=== PATIENT | male | born 1985 | race Caucasian/White ===

== ENCOUNTER → 2020-07-25 13:42 | Outpatient (BNVA) | payer OTHER, SELFPAY | PROVIDERS: Visit Provider Internal Medicine | DX: F11.99 Opioid use, unspecified with unspecified opioid-induced disorder (principal) | CPT/HCPCS: 80305; 99212 ==

== ENCOUNTER → 2020-08-02 14:34 | Outpatient (BNVA) | payer OTHER, SELFPAY | PROVIDERS: Visit Provider Internal Medicine | DX: F11.20 Opioid dependence, uncomplicated (principal); Z51.81 Encounter for therapeutic drug level monitoring; Z79.899 Other long term (current) drug therapy | CPT/HCPCS: 80305; 96372; 99212; Q9992 ==

== ENCOUNTER 2020-09-07 09:41 | Outpatient (REF) | payer OTHER, SELFPAY ==
[2020-09-10 15:46] LABS: Buprenorphine 320 ng/mL; Norbuprenorphine 920 ng/mL
[2020-09-14 08:23] LABS: Fentanyl, Ur NEGATIVE
== END 2020-09-07 09:42 | disposition home or self-care (01) ==
LOC: HO.LAB 09:41
PROVIDERS: Visit Provider Internal Medicine
DX: F11.99 Opioid use, unspecified with unspecified opioid-induced disorder (principal)
CPT/HCPCS: 80305; 80348; 80354; 80364; 80365; 99211

== ENCOUNTER 2022-07-23 10:09 | Emergency (ER) | payer OTHER, SELFPAY ==
--- NOTE | 2022-07-23 | ECG_ITS ---
Test Reason : numbness/ chest pain Blood Pressure : / mmHG Vent. Rate : 090 BPM Atrial Rate : 090 BPM P-R Int : 148 ms QRS Dur : 100 ms QT Int : 360 ms P-R-T Axes : 065 083 046 degrees QTc Int : 440 ms Normal sinus rhythm with sinus arrhythmia Normal ECG No previous ECGs available Referred By: Generic ED Physician Electronically Signed By:Willie Hager
[2022-07-23 10:13] VITALS: BP 146/91; PULSE 89; RESP 18; O2SAT 95; BMI 27.8
[2022-07-23 10:52] LABS: Basophils Absolute Auto 0.1 X10*3/uL (0.0-0.2); Basophils Percent Auto 0.6 % (0-2); Eosinophils Absolute Auto 0.2 X10*3/uL (0.0-0.4); Eosinophils Percent Auto 2.1 % (0-4); Hematocrit 46.2 % (42.0-52.0); Hemoglobin 15.7 g/dl (14.0-18.0); Imm Gran Abs Auto 0.03 X10*3/uL (0.00-0.03); Imm Gran Pct Auto 0.4 % (0.0-0.4); Lymphocytes Absolute Auto 2.5 X10*3/uL (1.2-4.9); Lymphocytes Percent Auto 31.1 % (20-40); MANUAL DIFF FLAG SCAN; Mean Corpuscular Hemoglobin 30.4 pg (27.0-33.0); Mean Corpuscular Volume 89.4 fL (80.0-98.0); Monocytes Absolute Auto 0.8 X10*3/uL (0.1-1.2); Monocytes Percent Auto 9.9 % (2-11); Neutrophils Absolute Auto 4.6 x10*3/uL (2.0-8.3); Neutrophils Percent Auto 55.9 % (45-73); PLT CLUMP 1; Red Blood Count 5.17 X10*6/uL (4.60-5.80); Red Cell Distribution Width 13.6 % (11.0-16.0); SCAN SMEAR FLAG 1
[2022-07-23 11:20] LABS: Platelet Count 180 X10*3/uL (160-400); White Blood Count 8.2 X10*3/uL (4.8-10.8)
[2022-07-23 11:21] LABS: SLIDE REVIEW VERIFIED
== END 2022-07-23 14:45 | disposition left against medical advice (07) ==
LOC: HO.ED 16:30
PROVIDERS: Emergency Provider Emergency Medicine; PCP Internal Medicine
DX: R20.2 Paresthesia of skin (principal)
CPT/HCPCS: 36415; 80053; 85025; 93005; 99281; 99283

== ENCOUNTER 2022-07-25 17:20 | Emergency (ER) | payer OTHER, SELFPAY ==
--- NOTE | ~2022-07-25 | XR_ITS ---
EXAMINATION: XR CHEST CLINICAL INFORMATION: Chest pain COMPARISON: None available. TECHNIQUE: Frontal view of the chest was obtained. FINDINGS: No significant abnormality is noted involving the heart, lungs, mediastinum, bony thorax or soft tissues. XR/XR chest 1V IMPRESSION: Unremarkable chest examination.
--- NOTE | ~2022-07-25 | XR_ITS ---
EXAMINATION: XR SHOULDER, LEFT CLINICAL INFORMATION: Left shoulder and neck pain COMPARISON: None available. TECHNIQUE: AP external rotation, Grashey, scapular Y, and axillary views of the left shoulder. FINDINGS: The bones and soft tissues are normal. No fracture. Glenohumeral and acromioclavicular alignment is anatomic with normal joint space. No abnormal soft tissue calcifications. XR/XR shoulder LT min 2V IMPRESSION: Unremarkable left shoulder.
--- NOTE | 2022-07-25 17:21 | ECG_ITS ---
Test Reason : CP Blood Pressure : / mmHG Vent. Rate : 067 BPM Atrial Rate : 067 BPM P-R Int : 196 ms QRS Dur : 100 ms QT Int : 404 ms P-R-T Axes : 045 076 040 degrees QTc Int : 426 ms Normal sinus rhythm Normal ECG When compared with ECG of 23-JUL-2022 10:17, No significant change was found Referred By: Faiza Hunt Electronically Signed By:Willie Hager
[2022-07-25 17:22] VITALS: BP 128/77; PULSE 69; RESP 18; TEMP 36.4; O2SAT 97; BMI 27.8
--- NOTE | 2022-07-25 17:22 | ED_ITS ---
<Statement entered by Nav Foss DO - 01/31/23 13:44> Not seen by chapincito salguero without completion of visit HPI - Chest Pain General Chief Complaint: Chest Pain <CLEO England - Last Filed: 07/25/22 17:26> Stated Complaint: chest pains <CLEO England - Last Filed: 07/25/22 17:26> Time Seen by Provider: 07/25/22 18:27 <CLEO England - Last Filed: 07/25/22 17:26> Related Data Home Medications: Previous Rx's Medication Instructions Recorded buprenorphine 100 mg/0.5 mL 100 mg (0.5 mL) subcut ONCE #0.5 mL 09/06/20 solution,exten.rel.subcutaneous syringe (Sublocade) buprenorphine 8 mg-naloxone 2 mg 2 film sublingual DAILY 30 days 09/16/20 sublingual film (Suboxone) #60 ea <CLEO England - Last Filed: 07/25/22 17:26> Allergies/Adverse Reactions: Allergies Allergy/AdvReac Type Severity Reaction Status Date / Time Penicillins Allergy Unknown Verified 07/25/22 17:22 <CLEO England - Last Filed: 07/25/22 17:26> [facility] Past Medical History Medical History: Medical History Opioid use disorder <CLEO England - Last Filed: 07/25/22 17:26> Social History Social History: Social History Advance Directives: No Advance Directives Information Provided: No <CLEO England - Last Filed: 07/25/22 17:26> Physical Exam 2 Vital Signs: Vital Signs: Last Vital Signs Temp 98.4 F 07/25/22 20:17 Pulse 75 07/25/22 20:17 Resp 18 07/25/22 20:17 BP 129/77 07/25/22 20:17 Pulse Ox 97 07/25/22 20:17 O2 Del Method Room Air 07/25/22 20:17 BMI result Body Mass Index 27.8 <CLEO England Last Filed: 07/25/22 17:26> Vital Signs: Last Vital Signs Temp 98.4 F 07/25/22 20:17 Pulse 75 07/25/22 20:17 Resp 18 07/25/22 20:17 BP 129/77 07/25/22 20:17 Pulse Ox 97 07/25/22 20:17 O2 Del Method Room Air 07/25/22 20:17 BMI result Body Mass Index 27.8 <Nav Foss DO - Last Filed: 01/31/23 13:45> Course Course Course Narrative: This is an RME: Additional HPI, ROS, PE not included below will be deferred to primary provider. 36-year-old male history of opiate use disorder presents to the emergency department substernal chest pain with radiation into left arm with intermittent numbness of left arm has been going on for a month and Physical exam benign Plan labs, EKG, troponin. Perc negative but patient is requesting to be checked for an embolism. <CLEO England - Last Filed: 07/25/22 17:26> This is an RME: Additional HPI, ROS, PE not included below will be deferred to primary provider. 36-year-old male history of opiate use disorder presents to the emergency department substernal chest pain with radiation into left arm with intermittent numbness of left arm has been going on for a month and Physical exam benign Plan labs, EKG, troponin. Perc negative but patient is requesting to be checked for an embolism. Not seen by Dr. Foss was seen in triage by Faiza <Nav Foss DO - Last Filed: 01/31/23 13:45> Medications Administered Discontinued Medications Generic Name Dose Route Start Last Admin Trade Name Freq PRN Reason Stop Dose Admin Ketorolac Tromethamine 15 mg 07/25/22 18:46 07/25/22 19:17 Ketorolac Tromethamine 30 Mg/Ml Vial IM 07/25/22 18:47 Not Given ONCE ONE <CLEO England - Last Filed: 07/25/22 17:26> Medications Administered Discontinued Medications Generic Name Dose Route Start Last Admin Trade Name Freq PRN Reason Stop Dose Admin Ketorolac Tromethamine 15 mg 07/25/22 18:46 07/25/22 19:17 Ketorolac Tromethamine 30 Mg/Ml Vial IM 07/25/22 18:47 Not Given ONCE ONE <Nav Foss DO - Last Filed: 01/31/23 13:45> Medical Decision Making Lab Data Result Diagrams: 07/25/22 18:36 07/25/22 17:39 <CLEO England - Last Filed: 07/25/22 17:26> Labs: Lab Results 07/25/22 07/25/22 07/25/22 Range/Units 17:39 17:50 18:36 WBC 9.7 (4.8-10.8) X10*3/uL RBC 4.46 L (4.60-5.80) X10*6/uL Hgb 13.3 L (14.0-18.0) g/dl Hct 38.4 L (42.0-52.0) % MCV 86.1 (80.0-98.0) fL MCH 29.8 (27.0-33.0) pg MCHC 34.6 (31.0-36.0) g/dl RDW 13.4 (11.0-16.0) % Plt Count 278 D (160-400) X10*3/uL MPV 10.0 (9.4-12.4) fL Immature Gran % (Auto) 0.2 (0.0-0.4) % Neut % (Auto) 40.0 L (45-73) % Lymph % (Auto) 48.0 H (20-40) % Smyth % (Auto) 8.3 (2-11) % Eos % (Auto) 3.2 (0-4) % Baso % (Auto) 0.3 (0-2) % Lymph # (Auto) 4.7 (1.2-4.9) X10*3/uL Smyth # (Auto) 0.8 (0.1-1.2) X10*3/uL Eos # (Auto) 0.3 (0.0-0.4) X10*3/uL Baso # (Auto) 0.0 (0.0-0.2) X10*3/uL Abs Immat Gran (auto) 0.02 (0.00-0.03) X10*3/uL Absolute Neuts (auto) 3.9 (2.0-8.3) x10*3/uL Absolute Nucleated RBC 0.000 (0.0-0.012) X10*3/uL Nucleated RBC % (auto) 0.0 (0.0-0.2) /100WBC D-Dimer High Sensitivty 166 NG/ML Sodium 137 (135-145) mmol/L Potassium 4.7 (3.3-5.1) mmol/L Chloride 104 (96-108) mmol/L Carbon Dioxide 24 (22-29) mmol/L Anion Gap 14 (12-20) BUN 17 H (9-16) mg/dL Creatinine 0.80 (0.5-1.4) mg/dL Estim Creat Clear Calc 142.8 Estimated GFR > 60 Random Glucose 84 (60-115) mg/dL Calcium 9.3 (8.4-10.2) mg/dL Magnesium 2.1 (1.6-2.6) mg/dL Total Bilirubin 0.5 (0.0-1.0) mg/dL AST 97 H (5-37) U/L ALT 157 H (0-40) U/L Alkaline Phosphatase 70 (39-117) U/L Troponin I High Sens < 2.7 (<3.5-35.0) ng/L Total Protein 8.7 H (6.5-8.0) g/dL Albumin 4.0 (3.5-5.0) g/dL <CLOE England - Last Filed: 07/25/22 17:26> Lab Results 07/25/22 07/25/22 07/25/22 Range/Units 17:39 17:50 18:36 WBC 9.7 (4.8-10.8) X10*3/uL RBC 4.46 L (4.60-5.80) X10*6/uL Hgb 13.3 L (14.0-18.0) g/dl Hct 38.4 L (42.0-52.0) % MCV 86.1 (80.0-98.0) fL MCH 29.8 (27.0-33.0) pg MCHC 34.6 (31.0-36.0) g/dl RDW 13.4 (11.0-16.0) % Plt Count 278 D (160-400) X10*3/uL MPV 10.0 (9.4-12.4) fL Immature Gran % (Auto) 0.2 (0.0-0.4) % Neut % (Auto) 40.0 L (45-73) % Lymph % (Auto) 48.0 H (20-40) % Smyth % (Auto) 8.3 (2-11) % Eos % (Auto) 3.2 (0-4) % Baso % (Auto) 0.3 (0-2) % Lymph # (Auto) 4.7 (1.2-4.9) X10*3/uL Smyth # (Auto) 0.8 (0.1-1.2) X10*3/uL Eos # (Auto) 0.3 (0.0-0.4) X10*3/uL Baso # (Auto) 0.0 (0.0-0.2) X10*3/uL Abs Immat Gran (auto) 0.02 (0.00-0.03) X10*3/uL Absolute Neuts (auto) 3.9 (2.0-8.3) x10*3/uL Absolute Nucleated RBC 0.000 (0.0-0.012) X10*3/uL Nucleated RBC % (auto) 0.0 (0.0-0.2) /100WBC D-Dimer High Sensitivty 166 NG/ML Sodium 137 (135-145) mmol/L Potassium 4.7 (3.3-5.1) mmol/L Chloride 104 (96-108) mmol/L Carbon Dioxide 24 (22-29) mmol/L Anion Gap 14 (12-20) BUN 17 H (9-16) mg/dL Creatinine 0.80 (0.5-1.4) mg/dL Estim Creat Clear Calc 142.8 Estimated GFR > 60 Random Glucose 84 (60-115) mg/dL Calcium 9.3 (8.4-10.2) mg/dL Magnesium 2.1 (1.6-2.6) mg/dL Total Bilirubin 0.5 (0.0-1.0) mg/dL AST 97 H (5-37) U/L ALT 157 H (0-40) U/L Alkaline Phosphatase 70 (39-117) U/L Troponin I High Sens < 2.7 (<3.5-35.0) ng/L Total Protein 8.7 H (6.5-8.0) g/dL Albumin 4.0 (3.5-5.0) g/dL <Nav Foss DO - Last Filed: 01/31/23 13:45> Discharge Plan Discharge Clinical Impression: Opioid use disorder, Chest pain, Acute pain of left shoulder, Paresthesia and pain of left extremity <CLEO England - Last Filed: 07/25/22 17:26> Patient Disposition: Home, Self-Care <CLEO England - Last Filed: 07/25/22 17:26> Instructions: Chest Pain (DC), Paresthesia (ED), Shoulder Pain (ED), Arm Pain (ED), Opioid Use Disorder (ED) <CLEO England - Last Filed: 07/25/22 17:26> Additional Instructions: Please call follow-up with give any other concerns please do not hesitate to come back to emergency department. <CLEO England - Last Filed: 07/25/22 17:26> Prescriptions: No Action Sublocade 100 mg/0.5 mL solution, extended rel syringe 100 mg subcut ONCE Qty: 0.5 5RF buprenorphine-naloxone [Suboxone] 8-2 mg film 2 film sublingual DAILY 30 Days Qty: 60 0RF <CLEO England - Last Filed: 07/25/22 17:26> Referrals: Rivka Corley MD [Physician] - (Please call to follow up for your neck and shoulder pain) <CLEO England - Last Filed: 07/25/22 17:26> Interventions: ED Discharge Assessment Last Done: 07/25/22 20:20 <CLEO England - Last Filed: 07/25/22 17:26> Discharge Date/Time: 07/25/22 20:20 <CLEO England - Last Filed: 07/25/22 17:26>
[2022-07-25 18:05] LABS: D Dimer High Sensitivity 166 NG/ML
[2022-07-25 18:25] LABS: Alanine Aminotransferase 157 U/L (0-40); Alkaline Phosphatase 70 U/L (39-117); Anion Gap 14 (12-20); Aspartate Amino Transferase 97 U/L (5-37); Bilirubin Total 0.5 mg/dL (0.0-1.0); Blood Urea Nitrogen 17 mg/dL (9-16); Calcium 9.3 mg/dL (8.4-10.2); Carbon Dioxide 24 mmol/L (22-29); Chloride 104 mmol/L (96-108); Creatinine Clr Calc Pharmacy 142.8; Estimated Glomerular Filt Rate > 60; Glucose Random 84 mg/dL (60-115); Magnesium 2.1 mg/dL (1.6-2.6); Potassium 4.7 mmol/L (3.3-5.1); Sodium 137 mmol/L (135-145); Total Protein 8.7 g/dL (6.5-8.0); Troponin-I High Sensitivity < 2.7 ng/L (<3.5-35.0)
[2022-07-25 18:41] LABS: Basophils Percent Auto 0.3 % (0-2); Eosinophils Absolute Auto 0.3 X10*3/uL (0.0-0.4); Eosinophils Percent Auto 3.2 % (0-4); Hematocrit 38.4 % (42.0-52.0); Hemoglobin 13.3 g/dl (14.0-18.0); Imm Gran Abs Auto 0.02 X10*3/uL (0.00-0.03); Imm Gran Pct Auto 0.2 % (0.0-0.4); Lymphocytes Absolute Auto 4.7 X10*3/uL (1.2-4.9); Mean Corpuscular HGB Conc 34.6 g/dl (31.0-36.0); Mean Corpuscular Hemoglobin 29.8 pg (27.0-33.0); Mean Corpuscular Volume 86.1 fL (80.0-98.0); Monocytes Absolute Auto 0.8 X10*3/uL (0.1-1.2); Monocytes Percent Auto 8.3 % (2-11); Neutrophils Absolute Auto 3.9 x10*3/uL (2.0-8.3); Platelet Count 278 X10*3/uL (160-400); Red Blood Count 4.46 X10*6/uL (4.60-5.80); Red Cell Distribution Width 13.4 % (11.0-16.0); White Blood Count 9.7 X10*3/uL (4.8-10.8)
--- NOTE | 2022-07-25 18:42 | ED_ITS ---
HPI - Chest Pain General Chief Complaint: Chest Pain Stated Complaint: chest pains Time Seen by Provider: 07/25/22 18:27 Source: patient Mode of arrival: ambulatory Limitations: no limitations History of Present Illness HPI narrative: 36-year-old male presents to the emergency room complaining of left shoulder and neck pain. He states that about 6 weeks ago he hurt his head and shoulder with some concrete. He states he has since been seen at [facility] and here for this. He states he did sign yesterday and left without being seen. He also left base states several times. Patient states he also admits to being heavy drinker. Patient does not want help with his opiate use or alcohol abuse disorder. Patient denies fevers chills or cough states he does have some associated numbness down the left arm and some shooting pain up his neck. He denies any falls or new injuries. complaint: chest pain Related Data Previous Rx's Medication Instructions Recorded buprenorphine 100 mg/0.5 mL 100 mg (0.5 mL) subcut ONCE #0.5 mL 09/06/20 solution,exten.rel.subcutaneous syringe (Sublocade) buprenorphine 8 mg-naloxone 2 mg 2 film sublingual DAILY 30 days 09/16/20 sublingual film (Suboxone) #60 ea Allergies Allergy/AdvReac Type Severity Reaction Status Date / Time Penicillins Allergy Unknown Verified 07/25/22 17:22 Review of Systems Review of Systems: Review of systems: General: Patient denies any fever chills recent illness or falls Musculoskeletal: Denies back pain or body aches or other injuries HEENT: denies headache, runny nose, ear pain Respiratory: denies shortness of breath, cough Cardiovascular: no chest pain or palpitations : denies dysuria, frequency Abdomen: no nausea vomiting denies abdominal pain Extremities: no swelling, no pain Skin: no diaphoresis Yes all other systems are reviewed and are negative PMFSH Past Medical History Medical History Opioid use disorder Social History Social History Advance Directives: No Advance Directives Information Provided: No Physical Exam Vital Signs: Vital Signs: Last Vital Signs Temp 97.5 F 07/25/22 17:22 Pulse 69 07/25/22 17:22 Resp 18 07/25/22 17:22 BP 128/77 07/25/22 17:22 Pulse Ox 97 07/25/22 17:22 O2 Del Method Room Air 07/25/22 17:22 BMI result Body Mass Index 27.8 General: Well-appearing well-nourished in no signs of distress HEENT: Normocephalic atraumatic Neck: No signs of JVD, no masses no tenderness or lymphadenopathy Cardiovascular: Regular rate and rhythm Respiratory: Clear to auscultation bilaterally Abdomen: Soft nontender no masses Extremities: Normal pedal pulses no signs of edema patient is 4 weeks and strength to his bilateral upper extremities he is able to lift up his arms his thumbs down to his sides in full extension and rotation there is no tenderness he is able to push and pulls normal he is able to make okay sign extend his wrist Skin: Dry warm no rashes patient does have some track strickland to bilateral arms. Back: No tenderness full ROM Medications Administered Discontinued Medications Generic Name Dose Route Start Last Admin Trade Name Laney PRN Reason Stop Dose Admin Ketorolac Tromethamine 15 mg 07/25/22 18:46 07/25/22 19:17 Ketorolac Tromethamine 30 Mg/Ml Vial IM 07/25/22 18:47 Not Given ONCE ONE Medical Decision Making Medical Decision Making [facility] Narrative: Concern for left shoulder pain with some numbness down left arm do not think patient has acute injury do not think he is having anything that requires neur osurgical evaluation. He has no fevers or chills to suggest there is an infectious cause of his symptoms. 1954 Patient with left shoulder and neck pain. Patient wants a referral to Neurology. I tried to send to PT but patient refused. I don't have a reason for any other imaging and feel comfortable sending home. Differential Diagnosis Differential Diagnoses: The differential diagnosis associated with the presentation includes Concern for clavicle shoulder versus chest pain. I do not think this patient is having any CALEB he has been having pain for over 6 weeks here and had labs done with negative values patient was sent for an x-ray of her shoulder addition to the workup started med done. Lab Data 07/25/22 17:39 07/25/22 17:39 Labs: Lab Results 07/25/22 07/25/22 07/25/22 Range/Units 17:39 17:39 17:50 WBC (4.8-10.8) X10*3/uL RBC (4.60-5.80) X10*6/uL Hgb (14.0-18.0) g/dl Hct (42.0-52.0) % MCV (80.0-98.0) fL MCH (27.0-33.0) pg MCHC (31.0-36.0) g/dl RDW (11.0-16.0) % Plt Count (160-400) X10*3/uL MPV (9.4-12.4) fL Immature Gran % (Auto) (0.0-0.4) % Neut % (Auto) (45-73) % Lymph % (Auto) (20-40) % Wood % (Auto) (2-11) % Eos % (Auto) (0-4) % Baso % (Auto) (0-2) % Lymph # (Auto) (1.2-4.9) X10*3/uL Wood # (Auto) (0.1-1.2) X10*3/uL Eos # (Auto) (0.0-0.4) X10*3/uL Baso # (Auto) (0.0-0.2) X10*3/uL Abs Immat Gran (auto) (0.00-0.03) X10*3/uL Absolute Neuts (auto) (2.0-8.3) x10*3/uL Absolute Nucleated RBC (0.0-0.012) X10*3/uL Nucleated RBC % (auto) (0.0-0.2) /100WBC D-Dimer High Sensitivty 166 NG/ML Sodium 137 (135-145) mmol/L Potassium 4.7 (3.3-5.1) mmol/L Chloride 104 (96-108) mmol/L Carbon Dioxide 24 (22-29) mmol/L Anion Gap 14 (12-20) BUN 17 H (9-16) mg/dL Creatinine 0.80 (0.5-1.4) mg/dL Estim Creat Clear Calc 142.8 Estimated GFR > 60 Random Glucose 84 (60-115) mg/dL Calcium 9.3 (8.4-10.2) mg/dL Magnesium 2.1 (1.6-2.6) mg/dL Total Bilirubin 0.5 (0.0-1.0) mg/dL AST 97 H (5-37) U/L ALT 157 H (0-40) U/L Alkaline Phosphatase 70 (39-117) U/L Troponin I High Sens < 2.7 (<3.5-35.0) ng/L Total Protein 8.7 H (6.5-8.0) g/dL Albumin 4.0 (3.5-5.0) g/dL 07/25/22 Range/Units 18:36 WBC 9.7 (4.8-10.8) X10*3/uL RBC 4.46 L (4.60-5.80) X10*6/uL Hgb 13.3 L (14.0-18.0) g/dl Hct 38.4 L (42.0-52.0) % MCV 86.1 (80.0-98.0) fL MCH 29.8 (27.0-33.0) pg MCHC 34.6 (31.0-36.0) g/dl RDW 13.4 (11.0-16.0) % Plt Count 278 D (160-400) X10*3/uL MPV 10.0 (9.4-12.4) fL Immature Gran % (Auto) 0.2 (0.0-0.4) % Neut % (Auto) 40.0 L (45-73) % Lymph % (Auto) 48.0 H (20-40) % Wood % (Auto) 8.3 (2-11) % Eos % (Auto) 3.2 (0-4) % Baso % (Auto) 0.3 (0-2) % Lymph # (Auto) 4.7 (1.2-4.9) X10*3/uL Wood # (Auto) 0.8 (0.1-1.2) X10*3/uL Eos # (Auto) 0.3 (0.0-0.4) X10*3/uL Baso # (Auto) 0.0 (0.0-0.2) X10*3/uL Abs Immat Gran (auto) 0.02 (0.00-0.03) X10*3/uL Absolute Neuts (auto) 3.9 (2.0-8.3) x10*3/uL Absolute Nucleated RBC 0.000 (0.0-0.012) X10*3/uL Nucleated RBC % (auto) 0.0 (0.0-0.2) /100WBC D-Dimer High Sensitivty NG/ML Sodium (135-145) mmol/L Potassium (3.3-5.1) mmol/L Chloride (96-108) mmol/L Carbon Dioxide (22-29) mmol/L Anion Gap (12-20) BUN (9-16) mg/dL Creatinine (0.5-1.4) mg/dL Estim Creat Clear Calc Estimated GFR Random Glucose (60-115) mg/dL Calcium (8.4-10.2) mg/dL Magnesium (1.6-2.6) mg/dL Total Bilirubin (0.0-1.0) mg/dL AST (5-37) U/L ALT (0-40) U/L Alkaline Phosphatase (39-117) U/L Troponin I High Sens (<3.5-35.0) ng/L Total Protein (6.5-8.0) g/dL Albumin (3.5-5.0) g/dL Discharge Plan Discharge Clinical Impression: Opioid use disorder, Chest pain, Acute pain of left shoulder, Paresthesia and pain of left extremity Patient Disposition: Home, Self-Care Instructions: Chest Pain (DC), Paresthesia (ED), Shoulder Pain (ED), Arm Pain (ED), Opioid Use Disorder (ED) Additional Instructions: Please call follow-up with give any other concerns please do not hesitate to come back to emergency department. Prescriptions: No Action Sublocade 100 mg/0.5 mL solution, extended rel syringe 100 mg subcut ONCE Qty: 0.5 5RF buprenorphine-naloxone [Suboxone] 8-2 mg film 2 film sublingual DAILY 30 Days Qty: 60 0RF Referrals: Rivka Corley MD [Physician] - (Please call to follow up for your neck and shoulder pain)
[2022-07-25 20:17] VITALS: BP 129/77; PULSE 75; RESP 18; TEMP 36.9; O2SAT 97
== END 2022-07-25 20:20 | disposition home or self-care (01) ==
PROVIDERS: Physician Assistant; Emergency Provider Student in an Organized Health Care Education/Training Program; PCP Internal Medicine
DX: F11.19 Opioid abuse with unspecified opioid-induced disorder (principal); R07.89 Other chest pain; M25.512 Pain in left shoulder; R20.2 Paresthesia of skin; Z79.899 Other long term (current) drug therapy
CPT/HCPCS: 36415; 71045; 73030; 80053; 83735; 84484; 85025; 85379; 93005; 99283; 99284

== ENCOUNTER 2023-11-13 17:45 | Emergency (ER) | payer OTHER, SELFPAY ==
[2023-11-13 17:50] VITALS: BP 122/72; PULSE 87; RESP 16; TEMP 36.9; O2SAT 98; BMI 29.0
--- NOTE | 2023-11-13 17:53 | ED.DENTAL ---
HPI - Dental/Oral General Chief complaint: Dental/Oral Stated complaint: facial swelling Time Seen by Provider: 11/13/23 17:51 Source: patient Mode of arrival: ambulatory Limitations: no limitations History of Present Illness ED Provider: Anamika MURPHY HPI Narrative: 38-year-old male history of scleroderma, hepatitis-C, IVDA presents to the emergency department dental abscess for the past few days worsening. Patient reports he has poor dental care. Denies changes in voice, fevers, chills, cp, sob, nausea, vomiting, abd pain. Patient took Midol and ?dope ?for pain control. Related Data Previous Rx's ?Medication ?Instructions ?Recorded buprenorphine 100 mg/0.5 mL 100 mg (0.5 mL) subcut ONCE #0.5 mL 09/06/20 solution,exten.rel.subcutaneous syringe (Sublocade) buprenorphine 8 mg-naloxone 2 mg 2 film sublingual DAILY 30 days 09/16/20 sublingual film (Suboxone) #60 ea clindamycin HCl 300 mg capsule 300 mg PO TID 7 days #21 caps 11/13/23 Allergies Allergy/AdvReac Type Severity Reaction Status Date / Time Penicillins Allergy Unknown Verified 11/13/23 17:52 Review of Systems Review of Systems: Yes all other systems are reviewed and are negative PMFSH Past Medical History Attestation statement: The following information was validated with the patient. Source: old records reviewed and nursing notes reviewed Medical History Opioid use disorder Social History Social History Advance Directives: No Advance Directives Information Provided: No Physical Exam Vital Signs: Vital Signs: Last Vital Signs Temp 98.5 F 11/13/23 17:50 Pulse 87 11/13/23 17:50 Resp 16 11/13/23 17:50 BP 122/72 11/13/23 17:50 Pulse Ox 98 11/13/23 17:50 O2 Del Method Room Air 11/13/23 17:50 BMI result Body Mass Index 29.0 vss Appearance: Alert.? Oriented X3.? No acute distress.? Head: Normocephalic, atraumatic, no step-offs or deformities Eyes: Pupils equal, round and reactive to light.? Dental: poor dentition throughout. + halitosis + multiple caries and fracture teeth. Left upper teeth 13-14 w/ edema and early draining abscess. CVS: Normal heart rate and rhythm.? Pulses normal.? Respiratory: No respiratory distress.? Breath sounds normal.? Abdomen: Soft and nontender.? Skin: Skin warm and dry.? Normal skin color.? Normal skin turgor.? Extremities: No lower extremity edema.? No calf ttp. 5/5 strength to bilateral upper and lower extremities Neuro: Oriented X 3.? No motor deficit.? No sensory deficit. CN 2-12 intact Course Reevaluation(s) Reevaluation #1: Patient will trial po antibiotics and return in 2 days for follow up. Will try to get a dentist as soon as possible. Educated patient on diagnosis and treatment plan, answered all question, patient verbalizes understanding. At this time patient will be discharged home, advised to return with new or worsening symptoms. Educated on worrisome signs and symptoms and when to return. At this time I feel comfortable discharge home. Time: 17:56 Medical Decision Making Medical Decision Making [facility] Narrative: 1754 38 year old male presents w/ L upper dental pain x 2.5 days has a draining abscess PE small abcess to L upper tooth no fluctuance ( appears to be self draining) This is likely poor dentition with dental fracture and possible early abscess. Unlikely osteomyelitis, Tim's angina, necrotizing infection. Plan- dc with atbx follow-up in 2 days. Follow-up with dentist Differential Diagnosis Differential Diagnoses: The differential diagnosis associated with the presentation includes This is likely poor dentition with dental fracture and possible early abscess. Unlikely osteomyelitis, Tim's angina, necrotizing infection. Admission/Observation Consideration of admission/observation: Escalation of care including admission/observation considered No indication Prescription Management I considered prescription management with: Antibiotic Chronic Conditions Patient?s care impacted by: Other (Opiate use disorder ) Social Determinants Patient?s care significantly limited by Social Determinants of Health including: Inadequate housing, Low income, Alcoholism and drug addiction in family, Problems related to primary support group, Unemployment, Problems related to employment and Other Social Determinant of Health Discharge Plan Discharge Clinical Impression: Pain, dental Patient Disposition: Home, Self-Care Instructions: Toothache (ED) Additional Instructions: Take your medications as prescribed. If you were prescribed antibiotics today, it is important that you take your medication to their entirety, do not skip any doses, do not finish them early. Follow-up with your primary care provider this week. Return to the emergency department with new or worsening symptoms. Such as fevers, chills, chest pain, shortness of breath, nausea, vomiting, dizziness, headache, vision changes, lethargy In case of emergency call 911 Follow up with a dentist if you dont have one you can call [facility] [phone] Come back in two days for follow up Prescriptions: New clindamycin HCl 300 mg capsule 300 mg PO TID 7 Days Qty: 21 0RF No Action Sublocade 100 mg/0.5 mL solution, extended rel syringe 100 mg subcut ONCE Qty: 0.5 5RF buprenorphine-naloxone [Suboxone] 8-2 mg film 2 film sublingual DAILY 30 Days Qty: 60 0RF Referrals: Hoa Castro MD [Primary Care Provider] - 2 days Stand Alone Forms: Work/School Release Interventions: ED Discharge Assessment Last Done: 11/13/23 18:07 Print Language: Djiboutian
[2023-11-13 18:07] VITALS: BP 0/0; PULSE 0; RESP 0; TEMP 37
== END 2023-11-13 18:08 | disposition home or self-care (01) ==
PROVIDERS: Emergency Provider Internal Medicine; PCP Internal Medicine
DX: K04.7 Periapical abscess without sinus (principal); K08.89 Other specified disorders of teeth and supporting structures
CPT/HCPCS: 99282; 99283